=== PATIENT | female | born 1970 | race Two or more races ===

== ENCOUNTER 2020-08-30 10:36 | Emergency (ER) | payer OTHER ==
[2020-08-30 10:40] VITALS: TEMP 98.5; BMI 28.6
[2020-08-30 11:37] VITALS: BP 120/81; PULSE 78
[2020-08-30] MEDS ORDERED: ALBUTEROL SO4 HFA INHALER IH ONE ×2 (11:46→11:50)
== END 2020-08-30 12:50 | disposition home or self-care (01) ==
LOC: JER 10:36
DX: J30.2 Other seasonal allergic rhinitis (principal); J45.20 Mild intermittent asthma, uncomplicated
CPT/HCPCS: 71046-TC-FY; 93005; 93010; 99284-25

== ENCOUNTER 2023-01-23 04:37 | Day surgery (SDC) | payer OTHER ==
[2023-01-21 17:17] VITALS: BMI 30.9
[2023-01-23] MEDS ORDERED: LIDOCAINE HCL/PF 1% SDV 5ML VIAL ONE (07:18)
[2023-01-23] MEDS ORDERED: BUPIVACAINE HCL/PF 0.75% 10 ML VIAL ONE (07:18)
[2023-01-23 08:44] VITALS: RESP 18; TEMP 97.8
[2023-01-23] MEDS ORDERED: BUPIVACAINE HCL/PF 0.75% 10 ML VIAL NR ONE (10:18)
[2023-01-23] MEDS ORDERED: LIDOCAINE 1% P/F 10 MG/ML VIAL INF ONE (10:18)
[2023-01-23 10:41] VITALS: BP 108/60; PULSE 59
[2023-01-23] MEDS ORDERED: ACETAMINOPHEN 500 MG TABLET (FP) PO PRN (12:09)
== END 2023-01-23 10:43 | disposition home or self-care (01) ==
LOC: JASU-SURG 04:37
PROVIDERS: ATTEND Pain Medicine Pain Medicine
PROC: 3E0T33Z Introduction of Anti-inflammatory into Peripheral Nerves and Plexi, Percutaneous Approach (ICD-10-PCS; 2023-01-23)
PROC: 3E0T3BZ Introduction of Anesthetic Agent into Peripheral Nerves and Plexi, Percutaneous Approach (ICD-10-PCS; principal; 2023-01-23 10:15)
DX: M47.816 Spondylosis without myelopathy or radiculopathy, lumbar region (principal)
CPT/HCPCS: 76000-TC-FY; 81025

== ENCOUNTER → 2023-02-17 | Day surgery (SDC) | payer OTHER ==
[2023-02-16 12:31] VITALS: BMI 31.2
[2023-02-17 08:31] VITALS: TEMP 97.5
[2023-02-17 08:58] VITALS: BP 107/72; PULSE 62; RESP 16
== END | disposition home or self-care (01) ==
LOC: JASU-ENDO 04:48 → MERGE 08:30
PROVIDERS: ATTEND Internal Medicine Gastroenterology
PROC: 0DB78ZX Excision of Stomach, Pylorus, Via Natural or Artificial Opening Endoscopic, Diagnostic (ICD-10-PCS; 2023-02-17)
PROC: 0DB68ZX Excision of Stomach, Via Natural or Artificial Opening Endoscopic, Diagnostic (ICD-10-PCS; 2023-02-17)
PROC: 0DB28ZX Excision of Middle Esophagus, Via Natural or Artificial Opening Endoscopic, Diagnostic (ICD-10-PCS; 2023-02-17)
PROC: 0DB38ZX Excision of Lower Esophagus, Via Natural or Artificial Opening Endoscopic, Diagnostic (ICD-10-PCS; principal; 2023-02-17 08:00)
DX: K21.00 Gastro-esophageal reflux disease with esophagitis, without bleeding (principal); K44.9 Diaphragmatic hernia without obstruction or gangrene; K29.50 Unspecified chronic gastritis without bleeding; B96.81 Helicobacter pylori [H. pylori] as the cause of diseases classified elsewhere; Z98.84 Bariatric surgery status
CPT/HCPCS: 81025; 88305-TC; 88342-TC

== ENCOUNTER → 2023-03-31 | Day surgery (SDC) | payer OTHER ==
[2023-03-27 16:52] VITALS: BMI 31.2
[~2023-03-31] MED LIST: ACETAMINOPHEN 500 MG TABLET (FP) PO PRN; BUPIVACAINE HCL/PF 0.75% 10 ML VIAL NR ONE; BUPIVACAINE HCL/PF 0.75% 10 ML VIAL ONE; DEXAMETHASONE SOD PHOSPHATE 10 MG/1 ML VIAL IVPUSH ONE; LIDOCAINE HCL 1% PRESERVATIVE FREE - 30ML VIAL IJ ONE; LIDOCAINE HCL/PF 1% SDV 5ML VIAL ONE; LIDOCAINE HCL/PF 2% SDV 5ML VIAL INF ONE; LIDOCAINE HCL/PF 2% SDV 5ML VIAL ONE
[2023-03-31 09:28] VITALS: BP 118/75; PULSE 68; RESP 18; TEMP 98.2
== END | disposition home or self-care (01) ==
LOC: JASU-SURG 04:44
PROVIDERS: ATTEND Pain Medicine Pain Medicine
PROC: 3E0T33Z Introduction of Anti-inflammatory into Peripheral Nerves and Plexi, Percutaneous Approach (ICD-10-PCS; 2023-03-31)
PROC: 3E0T3BZ Introduction of Anesthetic Agent into Peripheral Nerves and Plexi, Percutaneous Approach (ICD-10-PCS; principal; 2023-03-31 11:00)
DX: M47.816 Spondylosis without myelopathy or radiculopathy, lumbar region (principal)
CPT/HCPCS: 76000-TC-FY; 81025; J1100